=== PATIENT | male | born 1970 | race Caucasian/White ===

== ENCOUNTER → 2017-10-09 09:00 | Outpatient (CLI) | payer MEDICAID | END | disposition home or self-care (01) | LOC: D.NM 09:00 | DX: R79.89 Other specified abnormal findings of blood chemistry (principal); R93.5 Abnormal findings on diagnostic imaging of other abdominal regions, including retroperitoneum ==

== ENCOUNTER → 2018-04-16 12:24 | Outpatient (CLI) | payer MEDICAID | END | disposition home or self-care (01) | LOC: D.MRI 04-12 18:00 | DX: M25.511 Pain in right shoulder (principal) ==

== ENCOUNTER 2018-06-07 07:25 | Day surgery (SDC) | payer MEDICAID ==
[2018-06-06 09:39] LABS: HEMATOCRIT 42.8 % (42.0-54.0); MCH 31.8 pg (26.0-34.0); MCV 90.9 fL (80.0-100.0); MEAN PLATELET VOLUME 11.3 fL (7.4-10.4); RBC 4.71 10x6/uL (4.20-6.10); RDW 13.1 % (11.5-14.5)
[2018-06-06 09:51] LABS: CALC OSMOLALITY 283 mosm/kg (275-300); CARBON DIOXIDE 25.1 mmol/L (21.0-32.0); CHLORIDE - SERUM 103 mmol/L (98-107); CREATININE - SERUM 0.8 mg/dL (0.6-1.3); GLUCOSE 289 mg/dL (74-106); POTASSIUM - SERUM 4.2 mmol/L (3.5-5.1); SODIUM 136 mmol/L (136-145); UREA NITROGEN 14 mg/dL (7-18); eGFR NON AFRICAN AMERICAN > 90 mL/min (90-120)
[~2018-06-07] VITALS: Ht 175.3 cm; Wt 128.8 kg
--- NOTE | ~2018-06-07 | OP ---
PATIENT NAME: MONTY HOWARD MEDICAL RECORD: [id number] :72 [facility] DATE: SURGEON: ARNAUD AMADOR MD DATE OF OPERATION: 06/07/2018 PREOPERATIVE DIAGNOSES: Impingement syndrome in the right shoulder. POSTOPERATIVE DIAGNOSIS: Impingement syndrome in the right shoulder. PROCEDURES: 1. Arthroscopic distal clavicle excision of the right shoulder done through separate incision - 1 cm. 2. Arthroscopic subacromial decompression, acromioplasty, and bursectomy. SURGEON: Arnaud Amador MD ANESTHESIA: General. INTRAOPERATIVE COMPLICATIONS: None. SUMMARY OF PATHOLOGIC FINDINGS: The patient did not have rotator cuff tearing. Attritional changes were seen. Coracoacromial ligament was excoriated. 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 OPERATIVE SUMMARY IN DETAIL: After obtaining the appropriate preoperative orthopedic surgery consents as well as anesthetic consultation, evaluation, and clearance, the patient was brought to the operating room and placed on the operating table in supine position. After general laryngeal mask airway was administered, the patient was placed in a right lateral decubitus position and all pressure points were well padded to include down leg peroneal pad as well as axillary roll. The patient was held firmly to the operating table using the vacuum pack suction system. Left upper extremity and shoulder were then prepped and draped in routine sterile fashion. The arm was held in Arthrex traction boom at 30 degrees of forward flexion, 30 degrees of abduction with 10 pounds of traction laterally. Arthroscopy was established in the glenohumeral joint from the posterior portal. Anterior partial was established through the anterior safe interval. Diagnostic arthroscopy showed relatively normal anatomy of the glenohumeral joint itself. Attention was then turned to subacromial space. While in subacromial space, accessory lateral portal was created. The [facility] tissue ablation system was then used to denude the undersurface of the acromion of all soft tissue elements and release the coracoacromial ligament. A 5-0 barrel bur was then used to perform acromioplasty at the level of acromioclavicular joint. Through a separate anterior portal, arthroscopically visualizing, the distal clavicle was excised using the 5-0 barrel bur and osteophytes were taken off the medial acromial and lateral distal clavicle. Lastly, all bursal type tissue was removed. Some attritional tearing of the rotator cuff was noted. This was gently debrided. Having completed this, arthroscopy portals were closed in routine interrupted fashion using 4-0 Prolene. Sterile dressings were applied. The patient was awakened and taken to the recovery room in stable condition. All final needle and sponge counts were correct. TRANSINT:[id number] Voice Confirmation ID: [id number] DOCUMENT ID: [id number] OPERATIVE REPORT [id number] MONTY HOWARD MD, ARNAUD CERVANTES at 0939 CC: [id number] DICTATION DATE: 06/13/18814 DIRECTOR OF TEACHER EDUCATION: 06/13/18 0939 [facility] 06/07/18 [id number] [place] [address]
[~2018-06-07 07:25] MED LIST: GLIMEPIRIDE4 MG PO; GLUCOPHAGE1000 MG PO; IBUPROFEN400 MG PO; JANUVIA100 MG PO; LISINOPRIL5 MG PO; PRAVASTATIN SOD10 MG PO; ULTRAM50 MG PO
[2018-06-07 07:58] VITALS: BP 149/90; Ht 175.3 cm; Wt 128.8 kg
== END 2018-06-07 11:53 | disposition home or self-care (01) ==
LOC: D.OPS 07:25 → D.PAN 12:15
PROVIDERS: Anesthesiology
DX: M75.41 Impingement syndrome of right shoulder (principal); Z01.812 Encounter for preprocedural laboratory examination

== ENCOUNTER → 2019-01-11 09:20 | Outpatient (CLI) | payer MEDICAID ==
[2018-06-07 07:58] VITALS: BMI 42.0
== END | disposition home or self-care (01) ==
LOC: D.NM 09:20
PROVIDERS: ATTEND Clinical Nurse Specialist Adult Health
DX: R10.11 Right upper quadrant pain (principal)

== ENCOUNTER 2019-03-13 09:00 | Day surgery (SDC) | payer MEDICAID ==
[2019-03-12 12:11] LABS: HEMATOCRIT 45.3 % (42.0-54.0); HEMOGLOBIN 15.6 g/dL (13.5-17.5); MCH 31.8 pg (26.0-34.0); MCHC 34.4 g/dL (31.0-37.0); MCV 92.3 fL (80.0-100.0); RBC 4.91 10x6/uL (4.20-6.10); RDW 13.5 % (11.5-14.5); WBC 6.9 10x3/uL (4.8-10.8)
[2019-03-12 12:25] LABS: CALC OSMOLALITY 279 mosm/kg (275-300); CALCIUM 9.2 mg/dL (8.5-10.1); CARBON DIOXIDE 29.1 mmol/L (21.0-32.0); CHLORIDE - SERUM 104 mmol/L (98-107); CREATININE - SERUM 0.8 mg/dL (0.6-1.3); POTASSIUM - SERUM 4.2 mmol/L (3.5-5.1); SODIUM 139 mmol/L (136-145); UREA NITROGEN 9 mg/dL (7-18); eGFR NON AFRICAN AMERICAN > 90 mL/min (90-120)
[2019-03-12 12:26] LABS: GLUCOSE 161 mg/dL (74-106)
[~2019-03-13] VITALS: Ht 175.3 cm; Wt 124.3 kg
[2019-03-13 09:53] VITALS: BP 141/73; Ht 175.3 cm; Wt 124.3 kg
[2019-03-13] MEDS ORDERED: HYDROCODON-ACE1 EAC7 PO (15:20)
== END 2019-03-13 19:05 | disposition home or self-care (01) ==
LOC: D.OPS 09:00 → D.PAN 09:45 → D.OPS 09:45 → D.PAN 10:15 → D.OPS 10:15
PROVIDERS: Anesthesiology; ATTEND Surgery
DX: K80.10 Calculus of gallbladder with chronic cholecystitis without obstruction (principal); K74.60 Unspecified cirrhosis of liver; Z01.812 Encounter for preprocedural laboratory examination

== ENCOUNTER 2020-01-06 06:35 | Day surgery (SDC) | payer MEDICAID ==
[2020-01-03 09:59] LABS: CALC OSMOLALITY 279 mosm/kg (275-300); CALCIUM 9.3 mg/dL (8.5-10.1); CHLORIDE - SERUM 103 mmol/L (98-107); CREATININE - SERUM 0.9 mg/dL (0.6-1.3); POTASSIUM - SERUM 3.8 mmol/L (3.5-5.1); SODIUM 137 mmol/L (136-145); UREA NITROGEN 9 mg/dL (7-18); eGFR NON AFRICAN AMERICAN > 90 mL/min (90-120)
[2020-01-03 10:01] LABS: GLUCOSE 229 mg/dL (74-106)
[2020-01-03 10:17] LABS: HEMATOCRIT 43.8 % (42.0-54.0); HEMOGLOBIN 15.1 g/dL (13.5-17.5); MCH 31.6 pg (26.0-34.0); MCHC 34.5 g/dL (31.0-37.0); MCV 91.6 fL (80.0-100.0); RBC 4.78 10x6/uL (4.20-6.10); RDW 13.3 % (11.5-14.5)
[~2020-01-06] VITALS: Ht 175.3 cm; Wt 122.9 kg
[~2020-01-06 06:35] MED LIST changes: +HYDROCODON-ACE1 EAC7 PO
[2020-01-06 07:00] VITALS: BP 158/94; Ht 175.3 cm; Wt 122.9 kg
--- NOTE | 2020-01-06 09:35 | NUR ---
0930 FL ADA DIET SERVED.
--- NOTE | 2020-01-06 10:16 | NUR ---
1015 MEDICATED FOR PAIN AND SUKUMAR HERE WITH CRUTCHES.
--- NOTE | 2020-01-06 10:34 | NUR ---
1030 IV REMOVED AND PRESSURE HELD
--- NOTE | 2020-01-06 10:50 | OP ---
PATIENT NAME: MONTY HOWARD MEDICAL RECORD: [id number] :72 LOCATION:[facility] ADMISSION DATE: SURGEON: ARNAUD AMADOR MD DATE OF OPERATION: 01/06/2020 PREOPERATIVE DIAGNOSIS: Painful Elise-Schlatter's on bilateral lower extremities. POSTOPERATIVE DIAGNOSIS: Painful La Russell-Schlatter's on bilateral lower extremities. PROCEDURE: Excision of painful bilateral Elise-Schlatter's. SURGEON: Arnaud Amador MD GEOGRAPHIC AREA INTELLIGENCE OFFICER: AV Ureña INTRAOPERATIVE COMPLICATIONS: None. SUMMARY OF PATHOLOGIC FINDINGS: The patient had very prominent ossicles consistent with preoperative radiographs as well as MRIs. There was no calcification. This was primarily all bony. OPERATIVE SUMMARY IN DETAIL: After obtaining the appropriate preoperative orthopedic surgery consent as well as anesthetic consultation, evaluation and clearance, the patient was brought to the operating room and placed on the operating table in supine position. After adequate general laryngeal mask airway was administered, bilateral lower extremities were prepped and draped in routine sterile fashion. Attention was first turned to the right lower extremity, which was the most symptomatic. Incision was made directly over the bony prominence, taken down the distal aspect of the patellar tendon, was gently removed from the bony ossicle. The bony ossicle was then taken down in its entirety using a rongeur. The area was smoothened with a rasp, very small rasp. It was then copiously irrigated. The tendon and paratenon were closed with 2-0 Vicryl. This was followed by 4-0 Prolene in routine interrupted fashion by AV Ureña. The area was locally infiltrated with 0.25% Marcaine with epinephrine. Having completed this, attention was turned to the left lower extremity. Again, incision was made directly over the bony prominence, taken down to the level of the distal aspect of the patellar tendon, which was split directly over the bony prominence. The bony prominence was exposed in its entirety and removed again with a rongeur and smoothened. Again, this was irrigated. The tendon and paratenon were closed with 2-0 Vicryl. This was again followed by 4-0 Prolene in routine interrupted fashion again by AV Ureña. The area was locally infiltrated with 0.25% Marcaine plain. Bilateral lower extremities were dressed with sterile dressing. The patient was then awakened and taken to the recovery room in stable condition. All final needle and sponge counts were correct. TRANSINT:[id number] Voice Confirmation ID: [id number] DOCUMENT ID: [id number] OPERATIVE REPORT [id number] MONTY HOWARD MD, ARNAUD CERVANTES at 1050 CC: [id number] DICTATION DATE: 01/06/20851 GAMEMASTER: 01/06/20 0946 [id number] [place] [address] [id number]
--- NOTE | 2020-01-06 11:02 | NUR ---
1100 PT CALLED ABOUT CRUTCH TRAINING. DRESSING AND WEIGHT BEARING CLARIFIED WITH DR AMADOR
--- NOTE | 2020-01-06 11:17 | NUR ---
1100 PT CALLED STATED THEY ARE ON THE WAY. 1120 WAITING FOR PT CRUTCH TRAINING
--- NOTE | 2020-01-06 11:32 | NUR ---
1130 PT HERE TO DO CRUTCH WALKING
== END 2020-01-06 11:39 | disposition home or self-care (01) ==
LOC: D.OPS 06:35 → D.PAN 14:15 → D.OPS 17:30
PROVIDERS: Anesthesiology; ATTEND Orthopaedic Surgery
DX: M92.52 Juvenile osteochondrosis of tibia tubercle (principal); M92.51 Juvenile osteochondrosis of proximal tibia; E11.9 Type 2 diabetes mellitus without complications; Z79.84 Long term (current) use of oral hypoglycemic drugs; F17.200 Nicotine dependence, unspecified, uncomplicated

== ENCOUNTER → 2020-04-15 10:05 | Outpatient (CLI) | payer BC ==
[2020-01-06 07:00] VITALS: BMI 40.1
== END | disposition home or self-care (01) ==
LOC: D.HCCECHO 10:00
PROVIDERS: ATTEND Internal Medicine Cardiovascular Disease
DX: R94.31 Abnormal electrocardiogram [ECG] [EKG] (principal); I10 Essential (primary) hypertension

== ENCOUNTER 2020-04-28 06:19 | Outpatient (CLI) | payer MEDICAID ==
[~2020-04-28] VITALS: Ht 175.3 cm; Wt 123.2 kg
--- NOTE | ~2020-04-28 | HEMODYNAMI ---
PATIENT:MONTY HOWARD MEDICAL RECORD: [id number] : 72 LOCATION:D.CAT ADMISSION DATE: 04/28/20 Generatedon:04/28/20208:28 Patient name: MONTY HOWARD Patient #: [id number] SSN: [id number] : 1970 Date of study: 04/28/2020 Page: Of Hemodynamic Procedure Report Patient Data Patient Demographics Procedure consent was obtained First Name: MONTY Gender: Male Last Name: ANITA : 1970 [facility] Initial: LUPE Age: 49 year(s) Patient #: [id number] Race: SSN: [id number] Additional ID: [id number] Contact details Address: [facility] [address] State: [place] City: [place] Zip code: [address] Past Medical History Performed procedures and imaging results Date Procedure Procedure Results Comments 04/15/2020 Stress testing Positive->Intermediate with SPECT MPI risk Allergies: No known allergies Admission Admission Data Admission Date: 04/28/2020 Admission Time: 6:19 Arrival Date: 04/28/2020 Arrival Time: 0:00 Admit Source: Other Insurance Payor: Private health insurance [facility] #: [id number] Height (in.): 69 BSA: 2.35 (m2) Height (cm.): 175.26 BMI: 40.1 (kg/m2) Weight (lbs.): 271.57 Weight (kg.): 123.18 Lab Results Lab Result Date: 04/28/2020 Lab Result Time: 0:00 Biochemistry Name Units Result Min Max BUN mg/dl 7 --(*---)-- 7 18 Creatinine mg/dl 0.8 --(-*--)-- 0.6 1.3 eGFR ml/min 90 --(*---)-- 90 120 NONAFRICAN CBC Name Units Result Min Max Hematocrit % 46.1 --(-*--)-- 42 54 Hemoglobin g/dl 15.6 --(--*-)-- 13.5 17.5 Procedure Procedure Types Cath Procedure Diagnostic Procedure C [facility] w/Coronaries Sedation Charges Moderate Sedation up to 15 minutes Procedure Description Procedure Date Procedure Date: 04/28/2020 Procedure Start Time: 8:14 Procedure End Time: 8:26 Procedure Staff Name Function Rohith Greene MD Performing Physician Avinash Merritt RN Nurse Meseret Alfredo RT Monitor Rani Wilkes RT Scrub Procedure Data Cath Procedure Fluoroscopy Diagnostic fluoroscopy Total fluoroscopy Time: 2.2 time: 2.2 min min Diagnostic fluoroscopy Total fluoroscopy dose: 663 dose: 663 mGy mGy Contrast Material Contrast Material Type Amount (ml) Isovue 370 62 Entry Location Entry Primary Successful Side Size Upsize Upsize Entry Closure Cisneros ccessful Closure Location (Fr) 1 (Fr) 2 (Fr) Remarks Device Remarks Radial Right 6 Fr Mechanical artery Short Compression Estimated blood loss: 5 ml Diagnostic catheters Device Type Used For End Catheter Placement DIAGNOSTIC Yeison 110cm Procedure 5Fr catheter ([id number]) Procedure Complications No complications Procedure Medications Medication Administration Route Dosage Oxygen etCO2 Nasal cannula 2 l/min Lidocaine 2% added to field 20 Heparin Flush Bag added to field 2 bags (1000units/500ml NS) 0.9% NaCl I.V. 100 ml/hr Versed I.V. 1 mg Fentanyl I.V. 50 mcg Versed I.V. 1 mg Fentanyl I.V. 50 mcg Versed I.V. 1 mg Fentanyl I.V. 50 mcg Radial Cocktail I.A. 1 syringe (Verapamil 2mg/Nitro 400mcg/Heparin 1500units) Versed I.V. 1 mg Lopressor I.V. 2.5 mg Hemodynamics Rest BSA: 2.35 (m2) HGB: 15.6 (g/dl) O2 Consumption: Estimated: 309.13 (ml/min) O2 Co nsumption indexed: Estimated:131.54 (ml/min/m) Heart Rate: 100 (bpm) Pressure Samples Time Site Value (mmHg) Purpose Heart Use Rate(bpm) 8:18 LV 161/31,65 Snapshot 102 8:19 AO (116) Pullback 77 Gradients Valve Time Site Site Mean SEP/DFP Peak To Heart Use 1 2 (mmHg) (sec/min) Peak Rate (mmHg) (bpm) Aortic 8:19 LV AO 18 17 77 (116) Calculations Valve P-P Mean Valve Index Valve Source Name Gradient Area Flow (cm2) Aortic 18 18 Snapshots Pre Cath Intra NCS Post Cath Vital Signs Time Heart Resp SPO2 etCO2 NIBP (mmHg) Rhythm Pain Sedation Rate (ipm) (%) (mmHg) Status Level (bpm) 8:00:55 98 16 98 34.4 151/91(112) NSR 0 (11) 10(A) , No pain 8:05:07 102 17 96 37.4 142/93(107) NSR 0 (11) 10(A) , No pain 8:09:21 95 12 96 12.7 129/92(109) NSR 0 (11) 10(A) , No pain 8:14:22 102 12 97 37.4 132/83(108) NSR 0 (11) 9(A) , No pain 8:18:32 101 12 98 29.9 130/87(98) NSR 0 (11) 9(A) , No pain 8:22:42 106 14 97 9.7 117/75(100) NSR 0 (11) 9(A) , No pain 8:26:52 98 13 98 14.9 129/72(99) NSR 0 (11) 9(A) , No pain 8:27:59 96 13 99 32.9 125/75(103) NSR 0 (11) 9(A) , No pain Medications Time Medication Route Dose Verified Delivered Reason Notes Effectiveness by by 8:02:02 Oxygen etCO2 2 l/min Rohith Buffie used for Nasal Jc Merritt RN procedure cannula 8:02:08 Lidocaine 2% added 20ml Rohith Rohith for local to vial Jc Greene MD anesthetic field 8:02:14 Heparin Flush added 2 bags Rohith Rohith used for Bag to Jc Greene MD procedure (1000units/500ml field NS) 8:02:23 0.9% NaCl I.V. 100 Rohith Buffie Per ml/hr Jc Merritt RN physician 8:06:15 Versed I.V. 1 mg Rohith Buffie for sedation Jc Merritt RN 8:06:23 Fentanyl I.V. 50 mcg Rohith Buffie for sedation Jc Merritt RN 8:11:32 Versed I.V. 1 mg Rohith Buffie for sedation Greene MD Merritt RN 8:11:35 Fentanyl I.V. 50 mcg Rohith Buffie for sedation Jc Merritt RN 8:15:21 Versed I.V. 1 mg Rohith Buffie for sedation Jc Merritt RN 8:15:25 Fentanyl I.V. 50 mcg Rohith Buffie for sedation Jc Merritt RN 8:17:41 Radial Cocktail I.A. 1 Rohith Rohith for (Verapamil syringe Jc Greene MD vasodilation 2mg/Nitro 400mcg/Heparin 1500units) 8:20:56 Versed I.V. 1 mg Rohith Rohith for sedation Jc Greene MD 8:25:38 Lopressor I.V. 2.5 mg Rohith Buffie Per Jc Merritt RN physician Procedure Log Time Note 7:21:41 Informed consent obtained and on chart 7:25:22 Lab Result : eGFR NONAFRICAN 90 ml/min 7:25:22 Lab Result : Creatinine 0.8 mg/dl 7:25:22 Lab Result : BUN 7 mg/dl 7:25:22 Lab Result : Hematocrit 46.1 % 7:25:22 Lab Result : Hemoglobin 15.6 g/dl 7:25:26 Arrival Date: 04/28/2020 12:00:00 AM 7:25:27 Admit Source: Other 7:25:29 Patient Height : 69 inches 7:25:33 Patient Weight : 271.57 lbs 7:25:43 Insurance Payor : Private health insurance 7:26:13 Diagnostic Cath Status : Elective 7:31:46 Procedure Status Elective Heart Cath (OP). 7:31:48 Time tracking: Regular hours (M-F 7:00 - 5:00) 7:31:52 Plan of Care:Hemodynamics will remain stable., Cardiac rhythm will remain stable., Comfort level will be maintained., Respiratory function will remain adequate., Patient/ family verbilizes understanding of procedure., Procedure tolerated without complication., Recovers from procedure without complications.. 7:32:06 Lab results completed and on chart. 7:32:35 Stress Test: yes; abnormal INFERIOR, LATERAL 7:33:28 Patient allergic to No known allergies 7:33:34 Alarms reviewed by R. NNahed 7:33:34 Sharps counted by scrub and verified by R.NNahed 7:38:26 H&P Date Dictated: 04/03/2020 Within 30 days and on chart.. 7:41:28 Avinash Merritt RN sent for patient. Start room use. 7:46:41 Patient received from Pre/Post Procedure Room to CCL 1 Alert and oriented. Tansferred to table in Supine position. 7:46:43 Warm blankets applied, and mann hugger turned on for patient comfort. 7:46:43 Correct patient and procedure confirmed by team. 7:46:44 ECG and BP/O2 sat monitors applied to patient. 7:46:46 Pre-procedure instructions explained to patient. 7:46:46 Pre-op teaching completed and patient verbalized understanding. 7:46:48 Family in waiting room. 7:46:50 Patient NPO since Midnight. 7:46:55 Is the patient allergic to Iodine/contrast media? No. 7:50:59 Patient diabetic? Yes. 7:51:02 If diabetic: On Metformin? Yes 7:51:19 Is patient on blood thinner?No 7:51:31 Previous problem with sedation/anesthesia? No ? 7:51:35 Snore? Yes 7:51:37 Sleep apnea? No 7:51:39 Deviated septum? No 7:51:40 Opens mouth fully? Yes 7:51:41 Sticks out tongue? Yes 7:51:43 Airway obstruction? No ? 7:51:47 Dentures? No ? 7:52:10 Pre procedure: right radial pulse 2+ Normal; easily identifiable; not easily obliterated 7:52:12 Pre procedure: right dorsailis pedis pulse 2+ Normal; easily identifiable; not easily obliterated 7:52:15 Modified Robert's test Radial < 7 seconds 7:52:17 Patient pain scale 0/10 ?. 7:52:28 IV patent on arrival in left hand with 0.9% NaCl at [facility]. 7:59:53 Vital chart was started 7:59:56 Full Disclosure recording started 8:00:00 Rhythm: sinus tachycardia 8:00:02 Baseline sample Acquired. 8:01:35 Risk of Mortality: 0.1 8:01:37 Risk of blood transfusion: 0.1 8:01:39 Risk of ELLI: 0.1 8:01:43 Right Radial & Right Groin area was prepped with chlora-prep and draped in sterile fashion 8:01:49 Use device set Radial Dx or PCI 8:01:50 ACIST Syringe (05682) opened to sterile field. 8:01:51 Medline Cath Pack ([id number]) opened to sterile field. 8:01:52 Bag Decanter () opened to sterile field. 8:01:53 ACIST Hand Control (67781) opened to sterile field. 8:01:53 ACIST Manifold (44111) opened to sterile field. 8:01:54 MBrace Wrist Support ([id number]) opened to sterile field. 8:01:56 EMERALD Guide Wire (971-266) opened to sterile field. 8:01:57 SHEATH 6FR RAIN (7028499) opened to sterile field. 8:02:02 Oxygen 2 l/min etCO2 Nasal cannula was administered by Avinash Merritt RN; used for procedure; Verbal order read back and verified. 8:02:08 Lidocaine 2% 20ml vial added to field was administered by Rohith Greene MD; for local anesthetic; Verbal order read back and verified. 8:02:14 Heparin Flush Bag (1000units/500ml NS) 2 bags added to field was administered by Rohith Greene MD; used for procedure; Verbal order read back and verified. 8:02:23 0.9% NaCl 100 ml/hr I.V. was administered by Avinash Merritt RN; Per physician; Verbal order read back and verified. 8:05:32 --------ALL STOP TIME OUT------ 8:05:33 Final Timeout: patient, procedure, and site verified with staff and physician. All members of the team are in agreement. 8:05:35 Right Radial & Right Groin site verified by team. 8:05:39 Fire Safety Assessment: A--An alcohol-based skin anteseptic being used preoperatively., C--Open oxygen or nitrous oxide is being used., D--An ESU, laser, or fiber-optic light is being used. 8:05:45 Physical assessment completed. ASA score P 2 - A patient with mild systemic disease as per Rohith Greene MD. 8:05:47 1) 90+ Normal kidney functon but urine findings or structural abnormalities or genetic trait point to kidney disease. 8:05:50 Maximum allowable contrast dose (3.7 X eGFR X 0.75)250 ml. 8:05:54 Sedation plan: IV Moderate Sedation Medication:Versed, Fentanyl 8:06:15 Versed 1 mg I.V. was administered by Avinash Merritt RN; for sedation; Verbal order read back and verified. 8:06:23 Fentanyl 50 mcg I.V. was administered by Avinash Merritt RN; for sedation; Verbal order read back and verified. 8:11:32 Versed 1 mg I.V. was administered by Avinash Merritt RN; for sedation; Verbal order read back and verified. 8:11:35 Fentanyl 50 mcg I.V. was administered by Avinash Merritt RN; for sedation; Verbal order read back and verified. 8:14:18 Procedure started. 8:14:39 Local anesthetic to right radial artery with Lidocaine 2% by Rohith Greene MD.INITIAL ACCESS ONLY 8:15:12 A 6 Fr Short sheath was inserted into the Right Radial artery 8:15:21 Versed 1 mg I.V. was administered by Avinash Merritt RN; for sedation; Verbal order read back and verified. 8:15:25 Fentanyl 50 mcg I.V. was administered by Avinash Merritt RN; for sedation; Verbal order read back and verified. 8:17:19 A DIAGNOSTIC Yeison 110cm 5Fr catheter (527000) was advanced over the wire and used for Procedure. 8:17:41 Radial Cocktail (Verapamil 2mg/Nitro 400mcg/Heparin 1500units) 1 syringe I.A. was administered by Rohith Greene MD; for vasodilation; Verbal order read back and verified. 8:18:09 LV gram done using SEBASTIAN 8:18:13 Injector settings: Ml/sec: 5, Volume: 15, 8:18:37 LV hemodynamics recorded. 8:18:58 EF : 60 % 8:19:38 LCA angiography performed. 8:19:41 Injector settings: Ml/sec: 3, Volume: 6, 8:20:56 Versed 1 mg I.V. was administered by Rohith Greene MD; for sedation; Verbal order read back and verified. 8:21:26 RCA angiography performed. 8:21:29 Injector settings: Ml/sec: 3, Volume: 6, 8:21:35 ACCDominant side:Right 8:23:20 Catheter removed. 8:23:25 ZEPHYR REGULAR TR BAND (605845) opened to sterile field. 8:23:52 Sheath removed intact; hemostasis achieved with Mechanical Compression to the Right Radial artery. 8:23:54 Procedure ended.(Physican Out) 8:24:02 Fluoroscopy time 02.20 minutes. 8:24:07 Fluoroscopy dose: 663 mGy 8:24:07 Flurop Dose total: 663 8:24:13 Dose Area Product 51739 mGy/cm. 8:24:16 Contrast amount:Isovue 370 62ml. 8:24:20 Maximum allowable dose exceeded? No. 8:24:21 Sharps counted by scrub and verified by R.N. 8:24:25 Cresco band inflated with 10cc of air. 8:24:26 Post Procedure Pulses reassessed and unchanged 8:24:29 Post procedure: right dorsailis pedis pulse 2+ Normal; easily identifiable; not easily obliterated. 8:24:33 Post-procedure physical assessment completed. ASA score P 2 - A patient with mild systemic disease as per Rohith Greene MD. 8:24:37 Post procedure rhythm: unchanged. 8:24:40 Estimated blood loss: 5 ml 8:24:42 Post procedure instruction explained to patient.Patient verbalizes understanding. 8:24:43 Patient needs reinforcement of post procedure teaching. 8:24:58 Procedure type changed to Cath procedure, Diagnostic procedure, [facility], [facility] w/Coronaries, Sedation Charges, Moderate Sedation up to 15 minutes 8:25:24 Procedure and supply charges have been captured, reviewed, submitted and are correct. 8:25:28 Procedure Complication : No complications 8:25:38 Lopressor 2.5 mg I.V. was administered by Avinash Merritt RN; Per physician; Verbal order read back and verified. 8:25:53 [facility] Findings: mild to moderate CAD (<70%) 8:25:57 Operative report dictated upon procedure completion. 8:25:58 See physician's report for complete and final results. 8:25:59 Report given to Pre/Post Procedure Room. 8:26:03 Patient transfered to Pre/Post Procedure Room with Stretcher. 8:26:05 Vital chart was stopped 8:26:08 Procedure ended. 8:26:08 Full Disclosure recording stopped 8:27:38 End room use (Document Last) 8:27:50 End room use (Document Last) 8:28:05 End room use (Document Last) Device Usage Item Name Manufacture Quantity Catalog Hospital Part Current Minima l Lot# / Number Charge Number Stock Stock Serial# Code ACIST Acist 1 24568 [id number] [id number] [id number] 20 Syringe Medical (32794) Systems Inc Medline Medline 1 [id number] 21461 680423 5 Cath Pack ([id number]) Bag Microtek 1 2001S 645639 77356 965433 5 Decanter Medical Inc. (2001S) ACIST Hand Acist 1 54011 780384 061320 871605 5 Control Medical (06762) Systems Inc ACIST Acist 1 75938 907411 261263 385084 5 Manifold Medical (75944) Systems Inc MBrace Advanced 1 140-0250-00 636646 00397 661234 5 Wrist Vascular Support Dynamics (427204551) EMERALD Cardinal 1 658-097 268096 346312 642875 5 Guide Wire Health (876-083) SHEATH 6FR Cardinal 1 5061001 200818 3193672 574739 5 [facility] (3593828) DIAGNOSTIC Terumo 1 405023 531978 419207 195516 5 Yeison 110cm 5Fr catheter (820731) ZEPHYR Cardinal 1 836975 713853 5497396 575410 5 REGULAR TR Health BAND (443895) Signature Audit Una Stage Time Signature Unsigned Intra-Procedure 04/28/2020 Meseret Alfredo 8:27:50 AM RT(R) Intra-Procedure 04/28/2020 Avinash Merritt RN 8:28:05 AM Intra-Procedure 04/28/2020 Rohith Greene MD 8:28:27 AM [id number] [place] [address]
[2020-04-28 07:00] VITALS: BP 136/93; Ht 175.3 cm; Wt 123.2 kg
[2020-04-28 07:12] LABS: BASOPHILS 0.6 % (0-2); EOSINOPHILS 8.6 % (0-7); HEMATOCRIT 46.1 % (42.0-54.0); HEMOGLOBIN 15.6 g/dL (13.5-17.5); IMMATURE GRANULOCYTES 0.3 % (0-5); LYMPHOCYTES 36.4 % (15-50); MCH 30.8 pg (26.0-34.0); MCHC 33.8 g/dL (31.0-37.0); MCV 91.1 fL (80.0-100.0); MEAN PLATELET VOLUME 11.5 fL (7.4-10.4); MONOCYTES 11.9 % (2-11); NEUTROPHILS 42.2 % (40-80); PLATELET COUNT 117 10x3/uL (130-400); RBC 5.06 10x6/uL (4.20-6.10); RDW 13.3 % (11.5-14.5); WBC 7.1 10x3/uL (4.8-10.8)
[2020-04-28 07:15] LABS: ALT (SGPT) 45 U/L (10-68); CHOL - HDL RATIO 3.5 ratio (2.3-4.9); CHOLESTEROL, TOTAL 159 mg/dL (0-200); HDL CHOLESTEROL 46 mg/dL (32-96); LDL CHOLESTEROL 92 mg/dL (0-100); TRIGLYCERIDE 107 mg/dL (30-200)
[2020-04-28 07:21] LABS: CALC OSMOLALITY 271 mosm/kg (275-300); CALCIUM 8.7 mg/dL (8.5-10.1); CARBON DIOXIDE 23.9 mmol/L (21.0-32.0); CHLORIDE - SERUM 103 mmol/L (98-107); CREATININE - SERUM 0.8 mg/dL (0.6-1.3); GLUCOSE 176 mg/dL (74-106); POTASSIUM - SERUM 3.9 mmol/L (3.5-5.1); SODIUM 135 mmol/L (136-145); UREA NITROGEN 7 mg/dL (7-18); eGFR NON AFRICAN AMERICAN > 90 mL/min (90-120)
--- NOTE | 2020-04-28 08:40 | NUR ---
PT REC'D TO ROOM 8 VIA STRETCHER FROM PROPERTY WORKER. MONITORS ESTAB. PT AWAKE AND ORIENTED. SEE DRAW TENDER. ALARMS ON AND C/L IN REACH.
--- NOTE | 2020-04-28 08:55 | NUR ---
R WRIST SITE C/D/I. HAND/ARM WARM, PULSES PALP. PT GIVEN WATER PER REQUEST, DENIES NEEDS. ALARMS ON AND C/L IN REACH.
--- NOTE | 2020-04-28 09:10 | NUR ---
R WRIST SITE C/D/I. NO S/S BLEEDING OR HEMATOMA. PULSES PALP, VSS. ALARMS ON AND C/L IN REACH.
--- NOTE | 2020-04-28 09:20 | NUR ---
SPOKE WITH PT SISTER RE: DISCHARGE INSTRUCTIONS AND PLAN FOR PT D/C AT 1045.
--- NOTE | 2020-04-28 09:25 | NUR ---
R WRIST SITE C/D/I, NO S/S BLEEDING OR HEMATOMA. PULSES PALP. PT DENIES PAIN OR NEEDS. ALARMS ON AND C/L IN REACH.
--- NOTE | 2020-04-28 09:35 | NUR ---
DR ANDERSEN IN TO TALK TO PT.
--- NOTE | 2020-04-28 09:40 | NUR ---
2 CC AIR REMOVED FROM Z BAND, NO S/S BLEEDING OR HEMATOMA. WILL CONT CLOSE MONITORING.
--- NOTE | 2020-04-28 09:55 | NUR ---
TOTAL 5CC AIR REMOVED FROM Z BAND, NO S/S BLEEDING OR HEMATOMA. PT ALERT AND ORIENTED, VSS. C/L IN REACH.
--- NOTE | 2020-04-28 10:20 | NUR ---
ALL AIR REMOVED FROM Z BAND, NO S/S BLEEDING OR HEMATOMA. R ARM/HAND WARM, PULSES PALP.
--- NOTE | 2020-04-28 10:35 | NUR ---
Z BAND OFF, NO S/S BLEEDING OR HEMATOMA, DSG APPLIED. PIV D/C'D INTACT, DSG APPLIED. PT ALLOWED UP TO GET DRESSED AND GO TO BR INDEPENDENTLY.
--- NOTE | 2020-04-28 10:40 | NUR ---
ALL DISCHARGE INSTRUCTIONS REVIEWED WITH PT. HE VERBALIZES UNDERSTANDING.
--- NOTE | 2020-04-28 10:45 | NUR ---
PT D/C'D VIA WC TO PRIVATE VEHICLE WITH ALL PAPER WORK AND BELONGINGS.
== END 2020-04-28 10:45 | disposition home or self-care (01) ==
LOC: D.CATH 06:19
PROVIDERS: ATTEND Internal Medicine Cardiovascular Disease
DX: I20.9 Angina pectoris, unspecified (principal); R94.39 Abnormal result of other cardiovascular function study; I10 Essential (primary) hypertension; E11.9 Type 2 diabetes mellitus without complications; I45.10 Unspecified right bundle-branch block; Z82.49 Family history of ischemic heart disease and other diseases of the circulatory system; Z79.84 Long term (current) use of oral hypoglycemic drugs